=== PATIENT | female | born 2000 | race Caucasian/White ===

== ENCOUNTER 2020-09-12 03:11 | Emergency (ER) | payer MEDICAID, OTHER ==
[~2020-09-12] VITALS: Ht 165.1 cm; Wt 46.7 kg
[2020-09-12 03:13] VITALS: BP 126/87
[2020-09-12] MEDS ORDERED: AZITHROMYCIN 500 MG TABLET PO ONE (03:30)
[2020-09-12] MEDS ORDERED: CEFTRIAXONE 1,000 MG IM ONE (03:30)
[2020-09-12] MEDS ORDERED: AZITHROMYCIN 500 MG TABLET ONE (03:33)
[2020-09-12] MEDS ORDERED: CEFTRIAXONE 1,000 MG ONE (03:33)
[2020-09-12 03:39] LABS: HCG UR SG 1.009 (1.003-1.030)
--- NOTE | 2020-09-12 03:41 | NUR ---
PT WAS AMBULATORY TO BATHROOM WITH STEADY GAIT FOR URINE SAMPLE. THIS RN AT BEDSIDE TO WITNESS PELVIC EXAM.
[2020-09-12] MEDS ORDERED: LIDOCAINE-MPF 1%, 2ML ONE (03:44)
--- NOTE | 2020-09-12 04:04 | NUR ---
PT PROVIDED WITH SNACKS, ALL NEEDS MET AT THIS TIME. CALL LIG IN REACH. PT UPDATED ON POC THAT INCLUDES WAITING FOR LAB RESULTS.
[2020-09-12 04:28] LABS: CLUE CELLS NONE SEEN (NONE SEEN); WET PREP WBCS NONE SEEN (FEW)
== END 2020-09-12 04:51 | disposition home or self-care (01) ==
LOC: ED 03:59
DX: N89.8 Other specified noninflammatory disorders of vagina (principal); Z20.2 Contact with and (suspected) exposure to infections with a predominantly sexual mode of transmission; F17.200 Nicotine dependence, unspecified, uncomplicated
CPT/HCPCS: 81025; 87210; 87491; 87591; 87808; 96372; 99284; J0696